=== PATIENT | male | born 1985 | race Caucasian/White ===

== ENCOUNTER 2025-07-24 13:50 | Emergency (ER) | payer BC, SELFPAY ==
--- OUTSIDE RECORDS SUMMARY | 2025-06-30 05:36 | XMS_ITS | Continuity of Care Document ---
Author Organization [facility] Address [address] [address] [place] [address] Phone Care Team Providers Care Pot Fluxer Name Role Phone Karson Cain MD Unavailable Unavailabl e Allergies, Adverse Reactions, Alerts Substance Reaction Status Criticality Fish Containing Products Active No Information Medications Medication Instructions Dosage Effective Dates (start - stop) Status Comments ALLERGY (unknown strength) take 1 tablet by oral route every 4 hours as needed Not Available - Active Procedures Procedure Date Colonoscopy Flex; W/remov Les- Level Iv-surg Path Gross/micro Advance Directives Directive Yes / No Effective Date File Name No Information Encounters Encounter Description Practice Location Reason(s) For Visit Diagnoses Date Provider Providers Copied on Encounter [facility], [address] [address], [place], [place], [id number], [place] tel:[phone] [facility] No Information [address] [address], [place], [place], [id number] , [place]. tel:[phone] [facility], [address] [address], [place], [place], [id number], [place] tel:[phone] [facility] GI Symptoms or Concerns (chief complaint) Colorectal polypsFHx: colonic polypsEncounter for screening for malignant neoplasm of colonBenign neoplasm of sigmoid colonBenign neoplasm of rectumBenign neoplasm of sigmoid colonFamily history of colonic polyps 2 [address] [facility], [place], [place], [address] , [place]. tel:[phone] Referring Provider: Referral Self, USE FOR SELF REFERRALS. [facility] [address] [address], [place], [place], [id number], [place] tel:[phone] [facility] No Information [address] [facility], [place], [place], [address] , [place]. tel:[phone] Family History Family Member Type Diagnosis Age At Onset No Information Immunizations Vaccine Date Status Comments Influenza, seasonal, injectable administe red Note: [facility] bi- directional interface ; Source: Other Registry Payers Payer name Insurance type Covered green party ID Authoriza tion(s) [employer] [place] [id number] Social History Type Description Quantity Date Captured Comments Sex Male Smoking Status No Information Chief Complaint And Reason For Visit No Information Reason For Referral Reason For Referral No Information Plan Of Treatment Date Type Action Status Appointment Maggie Griffith BOOKED History Of Present Illness Encounter Date Complaint History Of Prese nt Illness GI Symptoms or Concerns Functional Status Date Functional Assessmen t No Information Instructions Date Instruction Additional Infor mation Colon Polyps Related to Color ectal polyps Colon Cancer Prevention Related to Colorectal polyps Assessments Type Assessment Date No Information Patient Care Teams Name Effective Dates (start - stop) Status Members No Information
--- OUTSIDE RECORDS SUMMARY | 2025-06-30 05:36 | XMS_ITS | Continuity of Care Document ---
Author Organization [facility] Address [address] [address] [place] [address] Phone Care Team Providers Care Dog Food Shredder Operator Name Role Phone Karson Cain MD Unavailable [...] Diagnoses Date Provider Providers Copied on Encounter [facility], [address] [address], [place], [place], [address], [place] tel:[phone] [facility] No Information [address] [address], [place], [place], [address] , [place]. tel:[phone] [facility], [address] [address], [place], [place], [address], [place] tel:[phone] [facility] GI Symptoms or Concerns (chief complaint) Colorectal polypsFHx: colonic polypsEncounter for screening for malignant neoplasm of colonBenign neoplasm of sigmoid colonBenign neoplasm of rectumBenign neoplasm of sigmoid colonFamily history of colonic polyps 2 Ambrosio Gray. [address] [facility], [place], [place], [address] , [place]. tel:[phone] Referring Provider: Referral Self, USE FOR SELF REFERRALS. [facility] [address] [address], [place], [place], [address], [place] tel:[phone] [facility] No Information [address] [facility], [place], [place], [address] , [place]. tel:[phone] Family History Family Member Type Diagnosis Age At Onset No Information Immunizations Vaccine Date Status Comments Influenza, seasonal, injectable administe red Note: [facility] bi- directional interface ; Source: Other Registry Payers Payer name Insurance type Covered libertarian ID Authoriza tion(s) [employer] [place] [id number] Social History Type Description Quantity Date Captured [...]
--- OUTSIDE RECORDS SUMMARY | 2025-07-24 13:51 | XMS_ITS | Encounter Summary ---
Author Organization [facility] Address [address] [place] [address] Care Team Providers Care Grinder Machine Setter Name Role Phone Chris Boone MD Primary Care Provider [phone] Chris Boone MD Unavailable Luis-JassMónica APRN WOODWORKING MACHINE OFFBEARER Primary Car e Provider Luis-Jass, Mónica Mcgill APRN WOODWORKING MACHINE OFFBEARER Unavailable Mariam Foster PA-C Unavailable Luis-Jass, Mónica Mcgill APRN WOODWORKING MACHINE OFFBEARER Unavailable Layla Mosqueda CASINO CAGE MANAGER WOODWORKING MACHINE OFFBEARER Unavailable Luis-Jass, Mónica Mcgill APRN WOODWORKING MACHINE OFFBEARER Unavailable Reason for Visit * Reason Onset Date Comments MyChart Communication 09/16/2019 Encounter Details Date Type Department Care Team (Latest Contact Info) Description 09/16/2019 [facility] [id number] [place] [id number] [place] [address] [place] [address] MyChart Communication Social History Tobacco Use Types Packs/Day Years Used Date Smoking Tobacco: Never Smokeless Tobacco: Never Alcohol Use Standard Drinks/Week Comments Yes 0 (1 standard drink = 0.6 oz pur e alcohol) AUDIT-C Answer Date Recorded Q1: How often do you have a drink containing alc ohol? 2-3 times a week 08/29/2019 Q2: How many drinks containi ng alcohol do you have on a typical day when you are drinking? 1 or 2 08/29/2019 Frequency of Binge Drinking Not on file 05/2019 PHQ-2 Answer Date Recorded PHQ-2 Score 0 09/05/2019 Sex and Gender Information Value Date Recorded Sex Assigned at Male 10/13/2022 9:07 AM PETROLEUM ENGINEER Legal Sex Male 3:10 AM PETROLEUM ENGINEER Gender Identity Male 10/13/2022 9:07 AM PETROLEUM ENGINEER Sexual Orientation Not on file documented as of this encounter Miscellaneous Notes * Telephone Encounter - Rey Palm PA-C - 09/16/2019 9:42 AM CDT Believe this was sent to me in error. Will route to Dr. Boone -kevin gray * Telephone Encounter - Mily Nicholas RN - 09/16/2019 9:35 AM CDT Please see my chart- Do you want to call pt? Mily Nicholas RN documented in this encounter Plan of Treatment Not on file documented as of this encounter Visit Diagnoses Not on filedocumented in this encounter Care Teams Grinder Machine Setter Relationship Specialty [place] [address] [address] [address] PCP - General Family Practice 09/16/19 10/22/22 Mónica Sandoval APRN CNP [address] [facility] [place] [address] PCP - General Family Medicine 10/23/22 [place] [address] [place] [address] Assigned PCP 08/05/19 10/03/22 Mónica Sandoval APRN WOODWORKING MACHINE OFFBEARER [address] [place] [address] [place] [address] Assigned PCP 11/01/22 05/14/24 Mariam Foster PA-C [address] [place] [address] [place] [address] Assigned Pain Medication Provider 12/01/22 05/15/23 Mónica Sandoval APRN WOODWORKING MACHINE OFFBEARER [address] [place] [address] [place] [address] Assigned Pain Medication Provider 05/16/23 05/22/23 Layla Mosqueda APRN WOODWORKING MACHINE OFFBEARER [address] [place] [address] Assigned PCP 05/15/24 04/13/25 Mónica Sandoval APRN WOODWORKING MACHINE OFFBEARER [address] [place] [address] [place] [address] Assigned PCP 04/14/25 documented as of this encounter
--- OUTSIDE RECORDS SUMMARY | 2025-07-24 13:51 | XMS_ITS | Clinical Summary ---
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 Max acetaminophen dose: 4000mg in 24 hrs. 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 Initiate after the medrol dosepak is complete. Do not take w/ the steroid. 128 tablet 0 Active methylPREDNISol one (Medrol, Jim,) 4 mg tabletIndicatio ns:Chronic midline low back pain with right-sided sciatica Take by mouth as instructed per packaging. 21 Tablet 2 Active cyclobenzaprine (FLEXERIL) 10 mg tabletIndicatio ns:Chronic midline low back pain with right-sided sciatica Take 1 Tablet (10 mg) by mouth 3 times daily if needed for Muscle Spasm. 30 Tablet 2 Active Active Problems Problem Noted Date Diagnosed Date Overweight 10/04/2019 Elevated blood pressure reading 10/04/2019 Migraine with aura, not intr actable, without status migrainosus 07/05/2018 Hx of multiple concussions 07/01/2018 Lumbar disc herniation with radiculopathy Immunizations Immunization Administration Dates Next Due Influenza, IIV3 (Age >=3 years) 12/18/2010 Family History Medical History Relation Name Comments Hypertension Maternal Grandmother Hypertension Other grandmother Relation Name Status Comments Father Alive Maternal Grandmother Alive Mother Alive Other Social History Tobacco Use Types Packs/Day Years Used Date Smoking Tobacco: Former Cigars Smokeless Tobacco: Never Alcohol Use Standard Drinks/Week Comments Yes 0 (1 standard drink = 0.6 oz pur e alcohol) 2-3 drinks per week PHQ-2 Answer Date Recorded PHQ-2 Score 0 01/25/2019 Social Connections Answer Date Recorded Frequency of Communication with Friends and Fami ly Not on file 11/23/2021 Financial Resource Strain Answer Date R ecorded Difficulty of Paying Living Expenses Not on file 11/23/2021 Difficulty of Paying Living Expenses Not on file 11/23/2021 Sex and Gender Information Value Date Recorded Sex Assigned at Not on file Legal Sex Male 8:02 AM CLUTCH INSPECTOR Gender Identity Not on file Sexual Orientation Not on file Obstetrics History Last Filed Vital Signs Vital Sign Reading Time Taken Comments Blood Pressure 131/87 12/02/2019 1:19 PM CLUTCH INSPECTOR Pulse 78 10/06/2019 7:37 AM CLUTCH INSPECTOR Temperature 36.7 C (98.1 F) 03/20/2022 2:51 PM CDT Respiratory Rate 16 10/06/2019 7:37 AM CLUTCH INSPECTOR Oxygen Saturation 98% 10/06/2019 7:37 AM CLUTCH INSPECTOR Inhaled Oxygen Concentration - - Weight 95.3 kg (210 lb) 03/20/2022 2:51 PM CDT Height 180.3 cm (5' 11) 03/20/2022 2:51 PM CDT Body Mass Index 29.29 03/20/2022 2:51 PM CDT Plan of Treatment Health Maintenance Due Date Last Done Comments Tetanus booster 1994 HIV for age 15-65 1998 Hepatitis C screening for age 18-79 2001 Hepatitis B series for 19+ (1 of 3 - 19+ 3-dose series) 2002 Lipids for age 35-44 2018 Depression screening for age 12+ 07/02/2019 07/02/2018 BMI (ht and wt on same day) for age 18+ 03/20/2023 03/20/2022, 03/28/2021, 08/16/2020, Additional history exists COVID-19 vaccine series ( - 2023- season) 2024 Influenza Vaccine (#1) 2025 12/18/2010 Pneumococcal series for age 6-49 Aged Out No longer eligible based on patient's age to complete this topic Medical Devices Implanted Type [employer] Wafer Breaker Device Identifier Shelf Expiration Date Model / Serial / Lot Plate Lmbr 10mm Activ L Pe-In Lay - [id number] Implanted:Qty : 1 on 10/04/2019 by Roderick Combs MD at [facility] N/A: Lumbar Vertebrae BBraun Aesculap 02/20/2022 [id number] / / [id number] Plate Lmbr [id number] 0deg Activ L Inferior Rafita - [id number] Implanted:Qty : 1 on 10/04/2019 by Roderick Combs MD at [facility] N/A: Lumbar Vertebrae BBraun Aesculap 09/06/2023 [id number] / / [id number] Plate Lmbr [id number] 6deg Activ L Superior Rafita - [id number] Implanted:Qty : 1 on 10/04/2019 by Roderick Combs MD at [facility] N/A: Lumbar Vertebrae BBraun Aesculap 09/22/2023 [id number] / / [id number] Insurance [facility] Advance Directives * Full Code (Latest Code Status on File) Date Activated Date Inactivated Comments 10/04/2019 8:32 AM 10/06/2019 4:26 PM Care Teams Molded Frames Assembler Relationship Specialty Start Date End Date Chuck Griffith MD PCP - General Family Practice 11/27/10
--- OUTSIDE RECORDS SUMMARY | 2025-07-24 13:51 | XMS_ITS | Encounter Summary ---
Author Organization [facility] Address [address] [place] [address] Care Team Providers Care Director Of Community Services Name Role Phone Chris Boone MD Primary Care Provider Chris Boone MD Unavailable Luis-JassMónica APRN LINE HAUL DRIVER Primary Car e Provider Luis-Jass, Mónica Mcgill APRN LINE HAUL DRIVER Unavailable Mariam Foster PA-C Unavailable Luis-Jass, Mónica Mcgill APRN LINE HAUL DRIVER Unavailable Layla Mosqueda MANAGER CHILD LINE HAUL DRIVER Unavailable Luis-Jass, Mónica Mcgill APRN LINE HAUL DRIVER Unavailable Reason for Visit * Reason Onset Date Comments MyChart Communication 09/21/2019 Encounter Details Date Type Department Care Team (Latest Contact Info) Description 09/21/2019 [facility] [id number] [place] [phone] [place] [address] [place] [address] MyChart Communication Social History Tobacco [...] Sex Assigned at Male 10/13/2022 9:07 AM VAMP LINER Legal Sex Male 3:10 AM VAMP LINER Gender Identity Male 10/13/2022 9:07 AM VAMP LINER Sexual Orientation Not on file documented as of this encounter Miscellaneous Notes * Telephone Encounter - Chris todd MD - 09/21/2019 4:45 PM CDT Send him a rescue inhaler, he can use every 6 hours as needed. Can you please contact him to let him know to start this medication? * Telephone Encounter - Elyse Boudreaux RN - 09/21/2019 2:36 PM CDT Please advise Elyse Boudreaux RN, BSN documented in this encounter Plan of Treatment Not on file documented as of this encounter Visit Diagnoses Not on filedocumented in this encounter Care Teams Director Of Community Services Relationship Specialty [place] [address] [address] [address] PCP - General Family Practice 09/16/19 10/22/22 Luis-Mónica Regan APRN CNP [address] [facility] [place] [address] PCP - General Family Medicine 10/23/22 [place] [address] [place] [address] Assigned PCP 08/05/19 10/03/22 Mónica Sandoval APRN LINE HAUL DRIVER [address] [place] [address] [place] [address] [address] Assigned PCP 11/01/22 05/14/24 Mariam Foster PA-C [address] [place] [address] [address] [address] [address] Assigned Pain Medication Provider 12/01/22 05/15/23 Mónica Sandoval APRN LINE HAUL DRIVER [address] [place] [address] [place] [address] Assigned Pain Medication Provider 05/16/23 05/22/23 Layla Mosqueda APRN LINE HAUL DRIVER [address] [place] [address] Assigned PCP 05/15/24 04/13/25 Mónica Sandoval APRN LINE HAUL DRIVER [address] [place] [address] [place] [address] [address] Assigned PCP 04/14/25 documented as of this encounter
--- OUTSIDE RECORDS SUMMARY | 2025-07-24 13:51 | XMS_ITS | Clinical Summary ---
Author Organization [facility] Address [address], [place] [address] Care Team Providers Care Rope Silica Machine Operator Name Role Phone Found, No Pcp MD Primary Care Provider Unavailab le Source Comments You are receiving this document as you are listed as the primary care provider,follow-up provider, or the patient has been referred to you for consultation.This is in compliance with the Medicare and[facility] Hospital[facility]id EHR Incentive Program,which states Providers who transition their patient to another setting of careor provider of care or refers their patient to another provider of care shouldprovide summary care record for each transition of care or referral. Pictour.usRustKofax Allergies Active Allergy Reactions Criticality Noted Date Comments Fish-Derived Products Anaphylaxis High 04/26/2024 Medications cyclobenzaprine (FLEXERIL) 5 MG tablet Take 1 tablet by mouth 3 times daily as needed for Muscle spasms. 30 tablet 0 4 Active Additional Information Patient not taking.Reported on 04/26/2024 diclofenac (VOLTAREN) 75 MG enteric coated tabletIndicatio ns:Sprain of medial collateral ligament of right knee, initial encounter Take 1 Tablet by mouth two times a day. 30 Tablet 0 Active Additional Information Patient not taking.Reported on 04/26/2024 celecoxib (CELEBREX) 200 MG capsule Take 1 Capsule (200 mg) by mouth every 24 hours as needed. 30 Capsule 3 Active gabapentin (NEURONTIN) 300 MG capsule Take 1-2 Capsules (300-600 mg) by mouth at bedtime as needed (pain). 30 Capsule 3 Active Additional Information Patient not taking.Reported on 04/26/2024 traMADol (ULTRAM) 50 MG tablet Take 1 Tablet (50 mg) by mouth every 8 hours as needed. 5 Tablet 3 Active Active Problems No known active problems Social History Tobacco Use Types Packs/Day Years Used Date Smoking Tobacco: Never Smokeless Tobacco: Never Sex and Gender Information Value Date Recorded Sex Assigned at Not on file Legal Sex Male 4:59 PM CDT Gender Identity Not on file Sexual Orientation Not on file Last Filed Vital Signs Vital Sign Reading Time Taken Comments Blood Pressure 129/95 04/26/2024 9:08 AM CDT Pulse 77 04/26/2024 9:08 AM CDT Temperature 36.7 C (98 F) 04/26/2024 9:08 AM CDT Respiratory Rate 16 04/26/2024 9:08 AM CDT Oxygen Saturation 100% 04/26/2024 9:08 AM CDT Inhaled Oxygen Concentration - - Weight 93 kg (205 lb) 08/12/2023 6:27 PM CDT Height 180.3 cm (5' 11) 08/12/2023 6:27 PM CDT Body Mass Index 28.59 08/12/2023 6:27 PM CDT Plan of Treatment Health Maintenance Due Date Last Done Comments Hep C Screening (Preventive Services) 1983 HIV Screening (Preventive Services) 1999 Adult Preventive Visit 2001 HepB Vaccine (1) 2002 HPV Vaccine (1 - 3-dose SCDM series) 2010 Cholesterol 2018 COVID-19 Vaccine ( - 2023-2 5 season) 2024 Influenza Vaccine (#1) 2025 12/18/2010 DTaP/Tdap/Td Vaccine (2 - Tdap) 10/23/2032 2 Zoster/Shingles Vaccine (1 of 2) 2033 HepA Vaccine Aged Out No longer eligi ble based on patient's age to complete this topic Hib Vaccine Aged Out No longer eligi ble based on patient's age to complete this topic IPV (Polio) Vaccine Aged Out No longe r eligible based on patient's age to complete this topic MCV4 Vaccine Aged Out No longer eligi ble based on patient's age to complete this topic Meningococcal B Vaccine Aged Out No l onger eligible based on patient's age to complete this topic Pneumococcal Vaccine Aged Out No long er eligible based on patient's age to complete this topic Insurance [facility] Care Teams Rope Silica Machine Operator Relationship Specialty Start Date End Date Found, No Pcp, [address] [place] [address] PCP - General 04/09/21
--- OUTSIDE RECORDS SUMMARY | 2025-07-24 13:51 | XMS_ITS | Clinical Summary ---
Author Organization [facility] Address [address] [place] [address] Care Team Providers Care Supervisor Claims Name Role Phone Mónica Sandoval APRN CARTRIDGE LOADER Primary Car e Provider Mónica Sandoval APRN CARTRIDGE LOADER Unavailable Allergies Active Allergy Reactions Criticality Noted Date Comments Fish Allergy 08/06/2022 Medications cyclobenzaprine (FLEXERIL) 10 MG tabletIndicatio ns:Acute pain of left shoulder Take 0.5-1 tablets (5-10 mg) by mouth nightly as needed for muscle spasms 30 tablet 10/09/2023 Active Active Problems Problem Noted Date Diagnosed Date Lumbar disc herniation with radiculopathy 2022 Pulmonary nodules-no further workup needed 10/23 Overview (10/30/2022): Repeat CT 10/2022 completed. No further workup needed History of concussion 10/23/2022 Family history of melanoma 10/23/2022 Benign neoplasm of rectum 08/08/2022 Benign neoplasm of sigmoid colon 08/08/2022 Polyp of colon 08/06/2022 Migraine with aura, not intr actable, without status migrainosus 07/05/2018 Immunizations Immunization Administration Dates Next Due Influenza (IIV3) PF 12/18/2010 TDAP (Adacel,Boostrix) 10/23/2022 Family History Medical History Relation Comments Basal cell carcinoma Father Colon Polyps Father Melanoma Father Hypertension Maternal Grandmother Basal cell carcinoma Mother Hyperlipidemia Mother Basal cell carcinoma Sister Relation Status Comments Father Alive Maternal Grandmother Mother Alive Sister Social History Tobacco Use Types Packs/Day Years Used Date Smoking Tobacco: Never Smokeless Tobacco: Never Tobacco Cessation:Counseling Given: Not Answered Alcohol Use Standard Drinks/Week Comments Yes 0 [...] PHQ-2 Answer Date Recorded PHQ-2 Score 0 10/09/2023 Adolescent Education Answer Date Record ed Getting School Help Needed Not on file 09/06 Food Insecurity Answer Date Recorded Within the past 12 months, d id you worry that your food would run out before you got money to buy more? Patient refused 2022 Within the past 12 months, d id the food you bought just not last and you didn t have money to get more? Patient refused 10/08/2023 Housing Stability Answer Date Recorded Do you have housing? (Samantha g is defined as stable permanent housing and does not include staying outside in a car, in a tent, in an abandoned building, in an overnight senior care, or couch-surfing.) Patient refused 10/08/2023 Are you worried about losing your housing? Carina nt refused 10/08/2023 Financial Resource Strain Answer Date R ecorded Within the past 12 months, h ave you or your family members you live with been unable to get utilities (heat, electricity) when it was really needed? Patient refused 023 Transportation Needs Answer Date Record ed Within the past 12 months, h as lack of transportation kept you from medical appointments, getting your medicines, non-medical meetings or appointments, work, or from getting things that you need? Patient refused 10/08/2023 Sex and Gender Information Value Date Recorded Sex Assigned at Male 10/13/2022 9:07 AM DIRECTOR MACHINE Legal Sex Male 3:10 AM DIRECTOR MACHINE Gender Identity Male 10/13/2022 9:07 AM DIRECTOR MACHINE Sexual Orientation Not on file Last Filed Vital Signs Vital Sign Reading Time Taken Comments Blood Pressure 118/82 10/09/2023 8:57 AM DIRECTOR MACHINE Pulse 65 10/09/2023 8:28 AM DIRECTOR MACHINE Temperature 36.2 C (97.1 F) 10/09/2023 8:28 AM DIRECTOR MACHINE Respiratory Rate 18 10/09/2023 8:28 AM DIRECTOR MACHINE Oxygen Saturation 99% 10/09/2023 8:28 AM DIRECTOR MACHINE Inhaled Oxygen Concentration - - Weight 91.2 kg (201 lb) 10/09/2023 8:28 AM DIRECTOR MACHINE Height 180.3 cm (5' 11) 10/09/2023 8:28 AM DIRECTOR MACHINE Body Mass Index 28.03 10/09/2023 8:28 AM DIRECTOR MACHINE Plan of Treatment Health Maintenance Due Date Last Done Comments CT COLONOGRAPHY 1983 FIT 1983 FLEX SIG 1983 sDNA (Cologuard) 1983 HIV SCREENING 1998 HEPATITIS C SCREENING 2001 HEPATITIS B VACCINE (1 of 3 - 19+ 3-dose series) 2002 COVID-19 VACCINE ( season) 2024 ANNUAL REVIEW OF HM ORDERS 10/09/2024 10/09/2023, YEARLY PREVENTIVE VISIT 10/09/2024 10/09/2023, 10/23 PHQ-2 (once per calendar year) 2024 10/09/2023, 10/23/2022, 09/05/2019 INFLUENZA VACCINE (#1) 2025 9 (Declined), 12/18/2010 COLONOSCOPY 08/06/2025 08/06/2022 COLORECTAL CANCER SCREENING 08/06/2025 DIABETES SCREENING 10/09/2026 10/09/2023, 1 01/08/2022, 10/23/2022, Additional history exists ADVANCE CARE PLANNING 10/23/2027 10/23/2022 LIPID 10/09/2028 10/09/2023, 10/23/2022 DTAP/TDAP/TD VACCINE (2 - Td or Tdap) 10/23/2032 10/23/2022 ZOSTER VACCINE (1 of 2) 2033 HPV VACCINE (No Doses Required) Completed MENINGITIS VACCINE Aged Out No longer eligible based on patient's age to complete this topic PNEUMOCOCCAL VACCINE: PEDIATRICS (0 to 5 YEARS) AND AT-RISK PATIENTS (6 to 49 YEARS) Aged Out No longer eligible based on patient's age to complete this topic Procedures Procedure Name Priority Date/Time Associated Diagnosis Comments COMPREHENSIVE METABOLIC PANEL Routine 10/09/2023 9:20 AM DIRECTOR MACHINE Screening for diabetes mellitus LIPID REFLEX TO DIRECT LDL PANEL Routine 10/09/2023 9:20 AM DIRECTOR MACHINE Screening for lipid disorders from Last 3 Months or Most Recently Relevant to Health Maintenance Results * (ABNORMAL) Lipid panel reflex to direct LDL Fasting (10/09/2023 9:20 AM DIRECTOR MACHINE) Cholesterol 218(H) <200 mg/dL 10/09/2023 7:01 PM DIRECTOR MACHINE [facility] Triglycerides 132 <150 mg/dL 10/09/2023 7:01 PM DIRECTOR MACHINE [facility] Direct Measure HDL 50 >=40 mg/dL 10/09/2023 7:01 PM DIRECTOR MACHINE [facility] LDL Cholesterol Calculated 142(H) <=100 mg/dL 10/09/2023 7:01 PM DIRECTOR MACHINE [facility] Non HDL Cholesterol 168(H) <130 mg/dL 10/09/2023 7:01 PM DIRECTOR MACHINE [facility] Blood BLOOD SPECIMEN / Unknown Venipuncture / Unknown 10/09/2023 9:20 AM DIRECTOR MACHINE 10/09/2023 9:20 AM DIRECTOR MACHINE Narrative [facility] - 10/09/2023 7:01 PM DIRECTOR MACHINE Cholesterol Desirable: <200 mg/dL Triglycerides Normal: Less than 150 mg/dL Borderline High: 150-199 mg/dL High: 200-499 mg/dL Very High: Greater than or equal to 500 mg/dL Direct Measure HDL Female: Greater than or equal to 50 mg/dL Male: Greater than or equal to 40 mg/dL LDL Cholesterol Desirable: <100mg/dL Above Desirable: 100-129 mg/dL Borderline High: 130-159 mg/dL High: 160-189 mg/dL Very High: >= 190 mg/dL Non HDL Cholesterol Desirable: 130 mg/dL Above Desirable: 130-159 mg/dL Borderline High: 160-189 mg/dL High: 190-219 mg/dL Very High: Greater than or equal to 220 mg/dL us Layla Yony Mosqueda SOCIAL SCIENCE ANALYST CARTRIDGE LOADER LAB - BLOOD ORDERABLES Final Result [facility] [address] [facility], [address] [address], [facility] [phone] * Comprehensive metabolic panel (BMP + Alb, Alk Phos, ALT, AST, Total. Bili, TP) (10/09/2023 9:20 AM DIRECTOR MACHINE) Sodium 139 135 - 145 mmol/L 10/09/2023 7:01 PM DIRECTOR MACHINE [facility] Comment:Reference intervals for this test were updated on 08/18/2023 to more accurately reflect our healthy population. There may be differences in the flagging of prior results with similar values performed with this method. Interpretation of those prior results can be made in the context of the updated reference intervals. Potassium 5.0 3.4 - 5.3 mmol/L 10/09/2023 7:01 PM DIRECTOR MACHINE [facility] Carbon Dioxide (CO2) 27 22 - 29 mmol/L 10/09/2023 7:01 PM DIRECTOR MACHINE [facility] Anion Gap 9 7 - 15 mmol/L 10/09/2023 7:01 PM DIRECTOR MACHINE [facility] Urea Nitrogen 14.1 6.0 - 20.0 mg/dL 10/09/2023 7:01 PM DIRECTOR MACHINE [facility] Creatinine 0.93 0.67 - 1.17 mg/dL 10/09/2023 7:01 PM DIRECTOR MACHINE [facility] GFR Estimate >90 >60 mL/min/1. 73m2 10/09/2023 7:01 PM DIRECTOR MACHINE [facility] Calcium 9.6 8.6 - 10.0 mg/dL 10/09/2023 7:01 PM DIRECTOR MACHINE [facility] Chloride 103 98 - 107 mmol/L 10/09/2023 7:01 PM DIRECTOR MACHINE [facility] Glucose 94 70 - 99 mg/dL 10/09/2023 7:01 PM DIRECTOR MACHINE [facility] Alkaline Phosphatase 49 40 - 150 U/L 10/09/2023 7:01 PM DIRECTOR MACHINE [facility] Comment:Reference intervals for this test were updated on 10/06/2023 to more accurately reflect our healthy population. There may be differences in the flagging of prior results with similar values performed with this method. Interpretation of those prior results can be made in the context of the updated reference intervals. AST 27 0 - 45 U/L 10/09/2023 7:01 PM DIRECTOR MACHINE [facility] Comment:Reference intervals for this test were updated on 05/04/2023 to more accurately reflect our healthy population. There may be differences in the flagging of prior results with similar values performed with this method. Interpretation of those prior results can be made in the context of the updated reference intervals. ALT 24 0 - 70 U/L 10/09/2023 7:01 PM DIRECTOR MACHINE [facility] Comment:Reference intervals for this test were updated on 05/04/2023 to more accurately reflect our healthy population. There may be differences in the flagging of prior results with similar values performed with this method. Interpretation of those prior results can be made in the context of the updated reference intervals. Protein Total 7.6 6.4 - 8.3 g/dL 10/09/2023 7:01 PM DIRECTOR MACHINE [facility] Albumin 4.6 3.5 - 5.2 g/dL 10/09/2023 7:01 PM DIRECTOR MACHINE [facility] Bilirubin Total 0.4 <=1.2 mg/dL 10/09/2023 7:01 PM DIRECTOR MACHINE [facility] Blood BLOOD SPECIMEN / Unknown Venipuncture / Unknown 10/09/2023 9:20 AM DIRECTOR MACHINE 10/09/2023 9:20 AM DIRECTOR MACHINE us Layla Mosqueda APRN CARTRIDGE LOADER LAB - BLOOD ORDERABLES Final Result [facility] [address] [facility], [address] [place] [address], [facility] [phone] from Last 3 Months or Most Recently Relevant to Health Maintenance Insurance [place] Care Teams Supervisor Claims Relationship Specialty Start Date End Date Mónica Sandoval APRN CARTRIDGE LOADER [address] [place] [address] [place] GLEASON [id number] PCP - General Family Medicine 10/23/22 Mónica Sandoval APRN CARTRIDGE LOADER [address] [place] [address] [place] G[place]ASON [phone] Assigned PCP 04/14/25
[2025-07-24 13:52] VITALS: BP 118/78; PULSE 77; RESP 16; TEMP 36.6; O2SAT 99; BMI 27.2
--- OUTSIDE RECORDS SUMMARY | 2025-07-24 13:52 | XMS_ITS | Encounter Summary ---
Author Organization [facility] Address [address] [place] [address] Care Team Providers Care Cement [employer] Name Role Phone Mónica Sandoval APRN CELLARS SUPERVISOR Primary Car e Provider Mónica Sandoval APRN CELLARS SUPERVISOR Unavailable Mariam Foster PA-C Unavailable Luis-Mónica Regan APRN CELLARS SUPERVISOR Unavailable Layla Mosqueda APRN CELLARS SUPERVISOR Unavailable [phone] Luis-JassMónica APRN CELLARS SUPERVISOR Unavailable Encounter Details Date Type Department Care Team (Late st Contact Info) Description 11/08/2022 [facility] Lissy [address] [place] [address] Mónica Sandoval APRN CELLARS SUPERVISOR [address] [facility] [place] G[place]AS[place] [address] Social History Tobacco Use Types Packs/Day Years [...] 05/2019 PHQ-2 Answer Date Recorded PHQ-2 Score 2 10/23/2022 Sex and Gender Information Value Date Recorded Sex Assigned at Male 10/13/2022 9:07 AM HAND MIXER Legal Sex Male 3:10 AM HAND MIXER Gender Identity Male 10/13/2022 9:07 AM HAND MIXER Sexual Orientation Not on file COVID-19 Exposure Response Date Recorded In the last 10 days, have yo u been in contact with someone who was confirmed or suspected to have Coronavirus/COVID-19? No / Unsure 11/11/2022 8:10 AM HAND MIXER documented as of this encounter Plan of Treatment Not on file documented as of this encounter Visit Diagnoses Not on filedocumented in this encounter Care Teams Cement [employer] Relationship Specialty Start Date End Date Mónica Sandoval APRN CELLARS SUPERVISOR [address] [place] [address] [place] GLEASON [address] PCP - General Family Medicine 10/23/22 Mónica Sandoval APRN CELLARS SUPERVISOR [address] [place] [address] [place] G[place]ASON [address] Assigned PCP 11/01/22 05/14/24 Mariam Foster, JOSE ANTONIOC [address] [place] [address] [place] GLEASON [address] Assigned Pain Medication Provider 12/01/22 05/15/23 Mónica Sandoval APRN CELLARS SUPERVISOR [address] [place] [address] [place] GLEASON [address] Assigned Pain Medication Provider 05/16/23 05/22/23 Layla Mosqueda APRN CELLARS SUPERVISOR [address] [place] [address] Assigned PCP 05/15/24 04/13/25 Mónica Sandoval APRN CELLARS SUPERVISOR [address] [facility] [place] [address] Assigned PCP 04/14/25 documented as of this encounter
--- OUTSIDE RECORDS SUMMARY | 2025-07-24 13:52 | XMS_ITS | Encounter Summary ---
Author Organization [facility] Address [address] [facility] [place] [address] Care Team Providers Care Trim Setter Name Role Phone Mónica Sandoval APRN 911 DISPATCHER Primary Car e Provider Mónica Sandoval APRN 911 DISPATCHER Unavailable Mariam FosterC Unavailable [phone] Luis-JassMónica arora APRN 911 DISPATCHER Unavailable Layla Mosqueda APRN 911 DISPATCHER Unavailable [phone] Luis-JassMónica APRN 911 DISPATCHER Unavailable Reason for Visit * Reason Onset Date Comments Refill Request 11/17/2022 Encounter Details Date Type Department Care Team (Late st Contact Info) Description 11/17/2022 [facility] Refill M [address] [address] Mariam Foster, PA-C [address] [id number] Refill Request Social History Tobacco Use Types Packs/Day Years [...] Sex Assigned at Male 10/13/2022 9:07 AM ACQUISITIONS ASSISTANT Legal Sex Male 3:10 AM ACQUISITIONS ASSISTANT Gender Identity Male 10/13/2022 9:07 AM ACQUISITIONS ASSISTANT Sexual Orientation Not on file COVID-19 Exposure Response Date Recorded In the last 10 days, have yo u been in contact with someone who was confirmed or suspected to have Coronavirus/COVID-19? No / Unsure 11/11/2022 8:10 AM ACQUISITIONS ASSISTANT documented as of this encounter Miscellaneous Notes * Telephone Encounter - Bella Johnston RN - 11/17/2022 10:18 AM ACQUISITIONS ASSISTANT Routing refill request to provider for review/approval because: Drug not on the [facility] refill protocol Bella Johnston RN on 11/17/2022 at 10:18 AM ISITIONS ASSISTANT documented in this encounter Plan of Treatment Not on file documented as of this encounter Visit Diagnoses Diagnosis Contusion of rib on left side, subsequent encounter documented in this encounter Care Teams Trim Setter Relationship Specialty Start Date End Date Mónica Sandoval APRN 911 DISPATCHER [address] [place] [address] [place] GLEASON [address] PCP - General Family Medicine 10/23/22 Mónica Sandoval APRN [address] [place] [address] [place] G[place]AS[place] [address] Assigned PCP 11/01/22 05/14/24 Mariam Foster PA-C [address] [place] [address] [place] GLEASON [address] Assigned Pain Medication Provider 12/01/22 05/15/23 Mónica Sandoval APRN 911 DISPATCHER [address] [facility] [place] G[place]AS[place] [address] Assigned Pain Medication Provider 05/16/23 05/22/23 Layla Mosqueda APRN 911 DISPATCHER [address] [place] [address] Assigned PCP 05/15/24 04/13/25 Mónica Sandoval APRN 911 DISPATCHER [address] [facility] [place] G[place]AS[place] [address] Assigned PCP 04/14/25 documented as of this encounter
--- OUTSIDE RECORDS SUMMARY | 2025-07-24 13:52 | XMS_ITS | Encounter Summary ---
Author Organization [facility] Address [address] [place] [address] Care Team Providers Care Manufactured Buildings Repairer Name Role Phone Mónica Sandoval APRN CAMERA MACHINIST Primary Car e Provider Mónica Sandoval APRN CAMERA MACHINIST Unavailable Layla Mosqueda APRN CAMERA MACHINIST Unavailable [phone] Mónica Sandoval APRN CAMERA MACHINIST Unavailable Encounter Details Date Type Department Care Team (Late st Contact Info) Description 10/08/2023 [facility] [address] [address] [facility] Social History Tobacco Use Types Packs/Day Years [...] Date Recorded Do you have housing? (Samantha loredo is defined as stable permanent housing and does not include staying outside in a car, in a tent, in an abandoned building, in an overnight residential, or couch-surfing.) Patient refused 10/08/2023 Are you worried about losing your housing? Patie nt refused 10/08/2023 Financial Resource Strain Answer [...] Sex Assigned at Male 10/13/2022 9:07 AM DISTRIBUTION FIELD TECHNICIAN Legal Sex Male 3:10 AM DISTRIBUTION FIELD TECHNICIAN Gender Identity Male 10/13/2022 9:07 AM DISTRIBUTION FIELD TECHNICIAN Sexual Orientation Not on file documented as of this encounter Plan of Treatment Not on file documented as of this encounter Visit Diagnoses Not on filedocumented in this encounter Care Teams Manufactured Buildings Repairer Relationship Specialty Start Date End Date Mónica Sandoval APRN CAMERA MACHINIST [address] [place] [address] [place] GLEASON [address] PCP - General Family Medicine 10/23/22 Mónica Sandoval APRN CAMERA MACHINIST [address] [place] [address] [place] G[place]AS[place] [address] Assigned PCP 11/01/22 05/14/24 Layla Mosqueda APRN CAMERA MACHINIST [address] [place] [address] Assigned PCP 05/15/24 04/13/25 Mónica Sandoval APRN CAMERA MACHINIST [address] [facility] [place] [address] Assigned PCP 04/14/25 documented as of this encounter
--- NOTE | 2025-07-24 14:03 | ED.LOWEXIN ---
HPI - Extremity Injury (Lower) General Time Seen by Provider: 14:03 Date Seen: 07/24/25 Chief Complaint: Extremity Pain/Injury, Lower Stated Complaint: L foot injury Time Seen by Provider: 07/24/25 14:03 Source: patient and RN notes reviewed Mode of arrival: ambulatory Limitations: no limitations History of Present Illness HPI Narrative: This 40yo male is ambulatory into the ED with concern of left foot injury. He was wake boarding yesterday when he fell catching with toes on the left foot. He felt like they were dislocated, pushed them back down. He can heel walk now but cannot bear any weight on the front of his foot without significant pain. Notes swelling in the foot. Sleep disrupted by pain. Related Data Home Medications ?Medication ?Instructions ?Recorded ?Confirmed No Known Home Medications 07/24/25 07/24/25 Allergies Allergy/AdvReac Type Severity Reaction Status Date / Time No Known Drug Allergies Allergy Verified 07/24/25 13:55 Review of Systems Narrative: As per HPI. Exam Const: Vital Signs, click to edit/add: Vital Signs - 24 hr 07/24/25 13:52 Temperature 97.9 F Pulse Rate [Pulse Oximeter] 77 Respiratory Rate 16 Blood Pressure [Ri ght Upper Arm] 118/78 Pulse Oximetry 99 Oxygen Delivery Me thod Room Air This 40-year-old male is alert, interactive, no apparent distress. He is wearing flip-flops, this is removed from his left foot and can see some swelling along the distal lateral foot. He has pain along the distal metatarsals 3 through 5 with the swelling is. She has no open wounds, no ecchymosis. His 4th and 5th toe on the left foot do seemed to curl but seems to be consistent with the right foot. He does note that his toes are more ?curled? and this is baseline. Neurovascular is intact. Toes seem to be straight, see no overlapping. Range of motion of the toes 2 through 5 do cause discomfort but it does feel like the metatarsophalangeal joints seem to be intact. He has no pain along the ankle, ankle mortise intact, no effusion, no pain over malleoli. Midfoot seems to be nontender, pulses are good and symmetric. The foot is warm and dry, there is no pallor or bruising noted, not cool. Documenting provider has reviewed patient's vital signs: yes Course Course ED Course: Will obtain x-ray imaging to rule out fracture. Reevaluation(s) Time of Reevaluation #1: 16:01 Reevaluation #1: Reviewed with patient that the radiologist agrees that there is no fracture. We discussed ligamentous injury. It sounds like he may have had dislocated toes, there can be ligamentous injury and is not surprising that he might still have pain. He does have crutches at home. We discussed either going with a boot or using crutches with partial heel weight-bearing. I do think he should follow up with Orthopedics. He had pain attempting to sleep last night. We do not have the short boot here or that would have been a stronger consideration. We only have the long 1 which is not necessary for him. All the pharmacies are closed at this time, we only have tramadol in [facility]. Will give him tramadol, 50 mg, 15 tablets which is the smallest amount I can provide from [facility]. Vital Signs Vital signs: Initial Vital Signs Temperature 97.9 F 07/24/25 13:52 Temperature Source Temporal Artery Scan 07/24/25 13:52 Pulse Rate 77 07/24/25 13:52 Respiratory Rate 16 07/24/25 13:52 Blood Pressure 118/78 07/24/25 13:52 Blood Pressure Mean 91 07/24/25 13:52 Blood Pressure Position Sitting 07/24/25 13:52 Pulse Oximetry 99 07/24/25 13:52 Oxygen Delivery Method Room Air 07/24/25 13:52 Vital Signs Temperature 97.9 F 07/24/25 13:52 Pulse Rate 77 07/24/25 13:52 Respiratory Rate 16 07/24/25 13:52 Blood Pressure 118/78 07/24/25 13:52 Pulse Oximetry 99 07/24/25 13:52 Oxygen Delivery Method Room Air 07/24/25 13:52 Temperature 97.9 F 07/24/25 13:52 Pulse Rate 77 07/24/25 13:52 Respiratory Rate 16 07/24/25 13:52 Blood Pressure 118/78 07/24/25 13:52 Pulse Oximetry 99 07/24/25 13:52 Oxygen Delivery Method Room Air 07/24/25 13:52 MDM - Extremity Injury (Lower) Imaging Data XR left foot: Attestation: I have reviewed the pertinent imaging results. My impression: I do not appreciate any acute fractures on my preliminary review. Radiologist's impression: Patient: WILBERT MARTINEZ Facility:?[facility] Patient ID:?[id number] Site Patient ID:?[id number]. Site :?1983 Study:?XRay-Extremity Left FOOT-07/24/2025 2:24:30 PM Ordering Physician:?Garcia Tate Final Report: INDICATION: Pain TECHNIQUE: Three views left foot FINDINGS/IMPRESSION: Normal alignment. No acute fracture or acute osseous abnormalities are visualized. Soft tissue swelling. Dictated by Genesis Raymond MD @ 07/24/2025 3:58:43 PM (Electronic Signature) Discharge Plan Discharge Clinical Impression: Foot sprain Qualifiers: Encounter type: initial encounter Laterality: left Qualified Code(s): S93.602A - Unspecified sprain of left foot, initial encounter Patient Disposition: Home, Self-Care Condition: Stable Instructions: Crutch Instructions (ED), Foot Sprain (ED) Additional Instructions: Use crutches for pain-free weight-bearing. Recommend contacting Orthopedics for follow-up, phone number is [phone]. Ice, elevate as much as you are able to to help decrease swelling. Can use Tylenol 1000 mg 3 times a day baseline for pain, supplement with additional ibuprofen per bottle directions as needed. I have written for tramadol 50 mg, 1 every 6 hours as needed for additional pain control. This is considered a narcotic. Recommend you try to minimize use to bedtime to allow you to sleep. Activity Level: Activity as Tolerated Prescriptions: No Action No Known Home Medications Follow Up/Referrals: Provider,Not a Local [Primary Care Provider, Family Practice] Stand Alone Forms: [facility] Info Instructions
--- NOTE | 2025-07-24 14:06 | CRLHL7_ITS ---
For Patients: As a result of the Century Cures Act, medical imaging exams and procedure reports are released immediately into your electronic medical record. You may view this report before your referring provider. If you have questions, please contact your health care provider. INDICATION: Pain TECHNIQUE: Three views left foot FINDINGS/IMPRESSION: Normal alignment. No acute fracture or acute osseous abnormalities are visualized. Soft tissue swelling. Dictated by Genesis Raymond MD @ 07/24/2025 3:58:43 PM (Electronically Signed)
== END 2025-07-24 16:29 | disposition home or self-care (01) ==
PROVIDERS: Emergency Provider Family Medicine
DX: S99.922A Unspecified injury of left foot, initial encounter (principal); Y93.18 Activity, surfing, windsurfing and boogie boarding
CPT/HCPCS: 73630; 99283